=== PATIENT | female | born 2000 | race African-American/Black ===

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

== ENCOUNTER 2019-04-21 00:27 | Emergency (ER) | payer BC ==
[~2019-04-21] VITALS: Ht 149.9 cm; Wt 49.9 kg
[2019-04-21 00:33] VITALS: BP 99/42
== END 2019-04-21 01:18 | disposition home or self-care (01) ==
LOC: ER 00:27
DX: H61.22 Impacted cerumen, left ear (principal)